=== PATIENT | female | born 1965 | race Caucasian/White ===

== ENCOUNTER 2024-10-18 14:25 | Observation (INO) ==
[2024-10-18] MEDS: MoRPHine SULFATE 10 MG/ML CARP/VIAL IV STA (14:38)
[2024-10-18] MEDS: SODIUM CHLORIDE 0.9% 1,000 ML IV STA (14:38)
--- NOTE | 2024-10-18 14:52 | Emergency Department Note ---
Impression & Plan Intractable abdominal pain, Severe nausea and vomiting, Acute dehydration ED Provider Note NAME: KERI CARTER AGE: 59 SEX: F : 1965 ARRIVES VIA: Ambulance INFORMANT: Patient, EMS, family ED PROVIDER(S): Abilio Aguilar DO CHIEF COMPLAINT: severe abdominal pain HPI: This is a 59-year-old female with the PMHx of prior cholecystectomy presenting to [facility] for further evaluation of severe abdominal. Patient is accompanied by EMS and family who provide additional history. EMS reports severe abdominal pain with nausea and emesis. Patient received Zofran and 200 mcg of IVP Fentanyl prior to arrival. Her symptoms have not improved. She notes the same complaints. 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 She notes its severe and like nothing she has experienced before. She describes it as a sharp pain in her RUQ. They deny fever or chills. No cough or congestion. Denies chest pain or palpitations. No shortness of breath. No urinary complaints. No recent changes in bowel movements. Patient denies recent changes in medications or OTC supplements. Patient offers no other complaints, today. ADDITIONAL HISTORY OBTAINED: Per HPI Chronic Medical/Social Conditions Affecting Care: Per HPI PAST MEDICAL HISTORY: See Below PAST SURGICAL HISTORY: See Below FAMILY HISTORY: See Below SOCIAL HISTORY: See Below HOME MEDICATIONS: See Below ALLERGIES: See Below VITALS: See Below PHYSICAL EXAMINATION: GENERAL: Sitting up in bed, alert, well appearing, well nourished, no distress, non-toxic EYE EXAM: normal conjunctiva. PERRL and EOM's grossly intact. OROPHARYNX: no exudate, no erythema, lips, buccal mucosa, and tongue normal and mucous membranes are moist NECK: supple, no nuchal rigidity, no adenopathy, non-tender LUNGS: Clear to auscultation. Normal chest wall mechanics HEART: no murmurs, regular rate, regular rhythm ABDOMEN: abdomen soft, TTP in the RUQ, no masses, no rebound or guarding. BACK: Back is symmetrical on inspection and there is no deformity, no midline tenderness, no CVA tenderness. SKIN: no rashes and no bruising UPPER EXTREMITIES: upper extremities are grossly normal. LOWER EXTREMITIES: No pitting edema. NEURO EXAM: Normal sensorium, GCS 15, normal speech, no gross weakness of arms, no gross weakness of legs. MEDICAL DECISION MAKING: Differential diagnoses includes but not limited to hepatobiliary dysfunction, pancreatitis, ischemic colitis, bowel perforation, SBO, appendicitis, electrolyte derangements, ACS, dysrhythmia, UTI, nephrolithiasis In summary, this is a 59 year old female who presented with acute onset, severe abdominal pain. Differential as above. Nursing notes and pertinent past medical records reviewed. Vital signs reviewed and the patient is hypertensive but otherwise afebrile and HDS. History and presentation revealed abdominal surgical history include cholecystectomy which raises concerns for possible intraabdominal pathology. Physical examination revealed as above. As a result of my initial evaluation, plan for pain control and antiemetics while obtaining labs/CTAP. Patient's presentation is concerning given that she is stoic and does not come to the hospital. Diagnostics interpreted by me include EKG and cardiac monitoring as listed below: -Cardiac Monitoring: An order was placed for continuous cardiac monitoring. The monitor shows a rate of 60-70s with regular rhythm. -ECG: EKG independently interpreted by me reveals normal sinus rhythm at a ventricular rate of [address] segment changes to suggest STEMI. There are some depressions and T wave inversions in the precordial leads. No other changes noted. Intervals within normal limits. Patient completed laboratory studies and imaging I-STAT chemistries independently interpreted by me revealed normal kidney function and electrolytes. Will plan for CT imaging. Results independently interpreted by me are no leukocytosis or anemia. No abnormalities of electrolytes or kidney function. Some elevation of BUN:Cr ratio likely from dehydration. Supported further by ketonuria from starvation ketosis. The patient does not have a UTI. No LFT elevation. The patient was managed with multimodal pain and nausea control without improvement. CTAP showed some CBD dilatation but likely normal in the setting of cholecystectomy. Would normally consider choledocholithiasis but no further evidence of this. EKG and troponin are reassuring that this is not an atypical presentation of ACS. Despite high doses of pain medications, she continued to have severe abdominal pain. The patient is felling asleep during subsequent interviews but continues to wake up report right sided abdominal pain. Ultimately, the decision was made to admit the patient for intractable abdominal pain with acute dehydration. I discussed the case with the hospitalist service via telephone/TigerText and they are agreeable to admit the patient to their services. Based on the above, including the patient's age, coexisting illnesses, labs, imaging, and exam findings the decision to treat as an inpatient. I discussed the patient with the hospitalist team who recommended admission to their services. They received the medications, treatments, interventions indicated above and their condition remained guarded. I discussed my findings with the patient and their family and they understand and agree with the treatment plan. All patient / family questions were answered to their satisfaction. Consults/Care Managements Discussions: Per MDM ER treatment provided: See above Procedures:none Critical Care: None The chart was completed utilizing [employer] Speech voice recognition software. Grammatical errors, random word insertions, pronoun errors, and incomplete sentences are an occasional consequence of this system due to software limitations, ambient noise, and hardware issues. Any formal questions or concerns about the content, text, or information contained within the body of this dictation should be directly addressed to the physician for clarification. 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 Beliefs That Will Affect Care: Mandaen Mandaen Beliefs: Congregational and Cultural Current Living Situation: Spouse and Family Other Information That Helps Us Care for You: No Feels Safe at Home: Yes Safety Concerns: Feels Safe At This Time Assistive Devices: Denture - Upper, Denture - Lower and Glasses Allergies Allergies Allergy/AdvReac Type Severity Reaction Status Date / Time No Known Allergies Unverified 10/18/24 15:38 Home Meds Home Medications Medication Instructions Recorded Confirmed acetaminophen 500 mg tablet 500 mg PO Q6H PRN Pain 10/18/24 10/18/24 ibuprofen 200 mg tablet 200 mg PO Q6H PRN Pain 10/18/24 10/18/24 multivitamin 1 tab PO DAILY 10/18/24 10/18/24 Results & Data (ED) Vital Signs Vital Signs - 24 hr 10/18/24 13:59 10/18/24 13:59 10/18/24 14:33 Temperature 37.1 C Temperature Source Oral Pulse Rate 71 71 Pulse Rate from SpO2 Sensor Respiratory Rate 22 Blood Pressure 144/70 H Blood Pressure Mean 94 Pulse Oximetry 97 Oxygen Delivery Method Room Air Room Air Sepsis Recent Fever Within 48 Hours No Sepsis New/Unexplained Change in Mental Status No Sepsis Action Taken by Nursing No Action Required 10/18/24 14:33 10/18/24 15:03 10/18/24 16:00 Temperature Temperature Source Pulse Rate 66 67 64 Pulse Rate from SpO2 Sensor 67 Respiratory Rate 13 14 13 Blood Pressure 144/70 H Blood Pressure Mean 94 Pulse Oximetry 93 Oxygen Delivery Method Room Air Sepsis Recent Fever Within 48 Hours Sepsis New/Unexplained Change in Mental Status Sepsis Action Taken by Nursing 10/18/24 17:00 Temperature Temperature Source Pulse Rate 70 Pulse Rate from SpO2 Sensor 70 Respiratory Rate 14 Blood Pressure Blood Pressure Mean Pulse Oximetry 95 Oxygen Delivery Method Room Air Sepsis Recent Fever Within 48 Hours Sepsis New/Unexplained Change in Mental Status Sepsis Action Taken by Nursing Laboratory Data 10/18/24 14:40 10/18/24 14:40 Lab Results 10/18/24 10/18/24 10/18/24 Range/Units 14:40 14:46 16:12 WBC 8.80 (4.8-10.8) K/ul RBC 4.18 L (4.20-5.40) M/uL Hgb 12.3 (12.0-16.0) g/dl POC Hgb 13.6 (12.0-16.0) g/dl Hct 37.8 (37.0-47.0) % POC Hct 40 (37-47) % MCV 90.4 (80.0-100.0) fL MCH 29.4 (25.0-34.0) pg MCHC 32.5 (32.0-36.0) g/dL RDW Std Deviation 47.3 H (36.4-46.3) fL RDW Coeff of Courtney 14.2 (11.5-14.5) % Plt Count 299 (130-400) K/uL MPV 9.8 (9.4-12.4) fL Immature Gran % (Auto) 0.2 % Neut % (Auto) 81.1 % Lymph % (Auto) 13.1 % [place] % (Auto) 4.7 % Eos % (Auto) 0.1 % Baso % (Auto) 0.8 % Neut # (Auto) 7.14 H (1.40-6.50) K/uL Lymph # (Auto) 1.15 L (1.20-3.40) K/uL [place] # (Auto) 0.41 (0.11-0.59) K/uL Eos # (Auto) 0.01 (0.00-0.50) K/uL Baso # (Auto) 0.07 (0.00-0.20) K/uL Immature Gran # (Auto) 0.02 (0.01-0.20) K/uL POC Sodium 139 (135-144) mmol/L Sodium 138 (136-145) mmol/L POC Potassium 3.8 (3.3-5.0) mmol/L Potassium 3.8 (3.5-5.1) mmol/L POC Chloride 104 (101-112) mmol/L Chloride 105 (98-107) mmol/L Carbon Dioxide 25 (21-32) mmol/L POC Total CO2 22 L (24-31) mmol/L Anion Gap 8 (3-11) POC Anion Gap 18.0 (16-25) mmol/L POC BUN 20 H (7-18) mg/dl BUN 20 (6-23) mg/dl Creatinine 0.58 L (0.6-1.2) mg/dl POC Creatinine 0.7 (0.6-1.3) mg/dl Est Cr Clr Drug Dosing 127.4 ml/min eGFR 102.89 BUN/Creatinine Ratio 34.5 H (10-20) Glucose 117 H (70-99(Fasting)) mg/dl POC Glucose (other) 114 H (70-99) mg/dl Lactate 0.7 (0.4-2.0) mmol/L Calcium 8.8 (8.6-10.3) mg/dl POC Ioniz Calcium Nura 1.15 (1.12-1.32) mmol/l Total Bilirubin 0.5 (0.2-1.0) mg/dl AST 22 (13-39) U/L ALT 23 (7-52) U/L Alkaline Phosphatase 54 (34-104) U/L Troponin I High Sens 6.2 (0-14) pg/ml Total Protein 7.2 (6.0-8.3) gm/dl Albumin 4.2 (3.4-5.0) gm/dl Globulin 3.0 (2.5-4.0) gm/dl Albumin/Globulin Ratio 1.4 (0.9-2) Lipase 13 (11-82) U/L Urine Color Dark Yellow Urine Appearance Clear (Clear) Urine pH 8.0 H (4.5-7.5) Ur Specific [place] 1.036 H (1.000-1.030) Urine Protein Trace H (Negative) Urine Glucose (UA) Negative (Negative) Urine Ketones 2+ H (Negative) Urine Blood Negative (Negative) Urine Nitrite Negative (Negative) Urine Bilirubin Negative (Negative) Urine Urobilinogen Negative (Negative) Ur Leukocyte Esterase Trace H (Negative) Urine WBC (Auto) 0-5 (0-5) /hpf Urine RBC (Auto) 0-2 (0-2) /hpf U Hyaline Cast (Auto) 0-2 (0-2) /lpf U Epithel Cells (Auto) 0-2 (0-2) /hpf Urine Bacteria (Auto) None Seen (None Seen) Urine Comment Administered Medications Sodium Chloride (Nss) 1,000 mls @ 100 mls/hr IV .Q10H GREGG Stop: 10/21/24 22:02 Last Admin: 10/18/24 22:29 Dose: 100 mls/hr Documented By: JANA Pantoprazole Sodium (Protonix) 40 mg in 10 mls @ 5 mls/min IV Q12 GREGG Stop: 11/17/24 22:02 Last Admin: 10/18/24 22:58 Dose: 5 mls/min Documented By: JANA Morphine Sulfate (Morphine Sulfate 4 Mg/Ml 1 Ml Carp\Vial) 3 mg IV Q4H PRN PRN Reason: Severe Pain (Scale 7, 8, 9,10) Stop: 11/01/24 22:02 Last Admin: 10/18/24 22:30 Dose: 3 mg Documented By: JANA Discontinued Medications Al Hydrox/Mg Hydrox/Simethicone (Aluminum/Magnesium Susp 30 Ml Udc) 30 ml PO NOW STA Stop: 10/18/24 16:53 Last Admin: 10/18/24 19:05 Dose: 30 ml Documented By: CAILIN Al Hydrox/Mg Hydrox/Simethicone (Aluminum/Magnesium Susp 30 Ml Udc) Confirm Administered Dose 30 ml .ROUTE .STK-MED ONE Stop: 10/18/24 19:05 Last Admin: 10/18/24 19:05 Dose: Not Given Documented By: CAILIN Diazepam (Diazepam Inj 5 Mg/Ml 2 Ml Carp) 5 mg IV NOW ONE Stop: 10/18/24 16:32 Last Admin: 10/18/24 16:47 Dose: 5 mg Documented By: KUSH Droperidol (Droperidol 5 Mg/2 Ml Vial) 1.25 mg IV ONE STA Stop: 10/18/24 16:09 Last Admin: 10/18/24 16:17 Dose: 1.25 mg Documented By: KUSH Fentanyl Citrate (Fentanyl Citrate Pf 100 Mcg/2 Ml Vial) Confirm Administered Dose 200 mcg .ROUTE .STK-MED ONE Stop: 10/18/24 14:44 Last Admin: 10/18/24 16:18 Dose: Not Given Documented By: KUSH Sodium Chloride (Nss) 1,000 mls @ 999 mls/hr IV .Q1H1M STA Stop: 10/18/24 15:32 Last Infusion: 10/18/24 18:59 Dose: Infused Documented By: Admin: 10/18/24 14:38 Dose: 999 mls/hr Documented By: DORA Ioversol (Optiray 320 100ml) 90 ml IV ONCE ONE Stop: 10/18/24 15:19 Last Admin: 10/18/24 15:18 Dose: 90 ml Documented By: ANITA Morphine Sulfate (Morphine Sulfate 10 Mg/Ml Carp/Vial) 6 mg IV NOW STA Stop: 10/18/24 14:33 Last Admin: 10/18/24 14:38 Dose: 6 mg Documented By: DORA Morphine Sulfate (Morphine Sulfate 4 Mg/Ml 1 Ml Carp\Vial) 4 mg IV NOW STA Stop: 10/18/24 18:30 Last Admin: 10/18/24 18:37 Dose: 4 mg Documented By: [facility] [place] Radiologist's Impression: Abdomen/Pelvis CT 10/18/24 14:[address] WITH IV CONTRAST CT DOSE: 1380.75 mGy.cm HISTORY: Severe right upper quadrant abdominal pain with prior cholecystectomy severe RUQ abd pain, h/o cholecystectomy TECHNIQUE: Multiaxial CT images of the abdomen and pelvis were performed following the IV administration of 90 cc of Optiray, A dose lowering technique was utilized adhering to the principles of ALARA. COMPARISON STUDY: Ultrasound 04/06/2009. FINDINGS: The imaged lung bases appear clear. No pneumatosis or pneumoperitoneum. The liver is only partially imaged with the visualized portions appearing to be within normal limits. Patent portal vein. Cholecystectomy with likely postsurgical biliary ductal dilation. The common bile duct measures 1.3 cm. Unremarkable spleen, pancreas and adrenal glands. The kidneys are unremarkable. No hydronephrosis. Atherosclerosis of the aorta without aneurysm. There is no lymphadenopathy. No bowel obstruction or bowel wall thickening. Nonspecific subcentimeter nodular focus of the omentum on image 95 series 3. Colonic diverticulosis without acute diverticulitis. Normal appendix. No ascites or mesenteric inflammation. No acute fracture. Sclerotic focus of the right iliac bone is nonspecific, possibly a bone island. IMPRESSION: 1. No acute intra-abdominal or intrapelvic abnormality. 2. Prior cholecystectomy with likely postsurgical biliary ductal dilation. 3. No bowel obstruction or bowel wall thickening. ACT 112: Negative or not required by law. The above report was generated using voice recognition software. It may contain grammatical, syntax or spelling errors. Electronically signed by: Dagoberto Lopez M.D. 10/18/2024 3:50 PM Discharge Plan Visit Data Chief Complaint: Abdominal Pain ED Provider: Abilio Aguilar Discharge Problem: Intractable abdominal pain, Severe nausea and vomiting, Acute dehydration Patient Disposition: Admitted As Inpatient Condition: Fair Discharge Instructions Interventions: ED Discharge Assessment Last Done: 10/18/24 21:05
[2024-10-18 14:55] LABS: Hematocrit (blood only) 37.8 % (37.0-47.0); Hemoglobin 12.3 g/dl (12.0-16.0); Immature Granulocytes # (auto) 0.02 K/uL (0.01-0.20); Immature Granulocytes % (auto) 0.2 %; Mean Corpuscular Hemoglobin 29.4 pg (25.0-34.0); Mean Corpuscular Volume 90.4 fL (80.0-100.0); Platelet Count 299 K/uL (130-400); RDW Standard Deviation 47.3 fL (36.4-46.3); Red Blood Count 4.18 M/uL (4.20-5.40); White Blood Count 8.80 K/ul (4.8-10.8)
[2024-10-18 15:16] LABS: Alanine Aminotransferase 23.0 U/L (7-52); Albumin Globulin Ratio 1.4 (0.9-2); Alkaline Phosphatase 54.0 U/L (34-104); Anion Gap 8.0 (3-11); Bilirubin,Total 0.5 mg/dl (0.2-1.0); Blood Urea Nitrogen 20.0 mg/dl (6-23); Calcium 8.8 mg/dl (8.6-10.3); Carbon Dioxide 25.0 mmol/L (21-32); Chloride 105.0 mmol/L (98-107); Creatinine Clr Calc Pharmacy 127.4 ml/min; Globulin 3.0 gm/dl (2.5-4.0); Glucose 117.0 mg/dl (70-99(Fasting)); Lipase 13.0 U/L (11-82); Potassium 3.8 mmol/L (3.5-5.1); Sodium 138.0 mmol/L (136-145); Total Protein 7.2 gm/dl (6.0-8.3)
[2024-10-18] MEDS: OPTIRAY 320 100ml IV ONE (15:18)
--- NOTE | 2024-10-18 15:51 | CT Scan Report ---
ABDOMEN AND PELVIS CT WITH IV CONTRAST CT DOSE: 1380.75 mGy.cm HISTORY: Severe right upper quadrant abdominal pain with prior cholecystectomy severe RUQ abd pain, h/o cholecystectomy TECHNIQUE: Multiaxial CT images of the abdomen and pelvis were performed following the IV administrat ion of 90 cc of Optiray, A dose lowering technique was utilized adhering to the principles of ALARA. COMPARISON STUDY: Ultrasound 04/06/2009. FINDINGS: The imaged lung bases appear clear. No pneumatosis or pneumoperitoneum. The liver is only p artially imaged with the visualized portions appearing to be within normal limits. Patent portal vein . Cholecystectomy with likely postsurgical biliary ductal dilation. The common bile duct measures 1.3 cm. Unremarkable spleen, pancreas and adrenal glands. The kidneys are unremarkable. No hydronephrosi s. Atherosclerosis of the aorta without aneurysm. There is no lymphadenopathy. No bowel obstruction or bowel wall thickening. Nonspecific subcentimeter nodular focus of the omentum on image 95 series 3. Colonic diverticulosis without acute diverticulitis. Normal appendix. No ascit es or mesenteric inflammation. No acute fracture. Sclerotic focus of the right iliac bone is nonspeci fic, possibly a bone island. IMPRESSION: 1. No acute intra-abdominal or intrapelvic abnormality. 2. Prior cholecystectomy with likely postsurgical biliary ductal dilation. 3. No bowel obstruction or bowel wall thickening. ACT 112: Negative or not required by law. The above report was generated using voice recognition software. It may contain grammatical, syntax o r spelling errors. Electronically signed by: Dagoberto Lopez M.D. 10/18/2024 3:50 PM
[2024-10-18] MEDS: DROPERIDOL 5 MG/2 ML VIAL IV STA (16:17)
[2024-10-18 16:40] LABS: Appearance Urine Clear (Clear); Bacteria Urine Automated None Seen (None Seen); Cast Urine Automated 0-2 /lpf (0-2); Epithelial Cell Urine Auto 0-2 /hpf (0-2); Glucose Urine UA Negative (Negative); RBC Urine Automated 0-2 /hpf (0-2); WBC Urine Automated 0-5 /hpf (0-5)
--- NOTE | 2024-10-18 18:03 | History & Physical Report ---
Date of Service October 18, 2024 Assessment & Plan (1) Abdominal pain: (2) Vomiting: Plan: Observation to med/surg Patient presenting from home for evaluation of intractable RUQ abdominal pain and vomiting. In the ED, labs and CT abd/pelvis unremarkable Suspect viral gastroenteritis Supportive care with IVF, IV PPI, PRN antiemetics and pain meds Clear liquids, NPO after midnight Consider GI consult in the AM if not improving DVT PROPHYLAXIS Ambulate, SCDs Patient seen in collaboration with Dr. Antunez. I spent a total of 60 minutes coordinating, documenting, and providing care for this patient excluding time spent in the performance of separately billed services. This included personally reviewing all current laboratories and imaging studies, medication reconciliation, outpatient chart review, and discussion with specialists. History of Present Illness Chief Complaint: Abdominal Pain, Vomiting Primary Care Provider: NO PCP 59 year old [facility] female without significant PMH, hx of cholecystectomy 15 years ago, who presents for evaluation of abdominal pain. 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 She reports associated vomiting. Denies hematemesis and coffee ground emesis. No diarrhea. Denies fever and chills. Took a total of 1000mg of ibuprofen without any improvement in the pain. No sick contacts reported. Denies recent travel. No urinary symptoms. Denies chest pain, SOB, lightheadedness, dizziness, diaphoresis, and syncopal event. In the ED, labs and CT abd/pelvis are unremarkable. VSS. Patient was given IV diazepam, droperidol, IV fentanyl, IV morphine, and IVF. She reports improvement in the pain however is still present. Allergies Allergy/AdvReac Type Severity Reaction Status Date / Time No Known Allergies Unverified 10/18/24 15:38 Home Medications Medication Instructions Recorded Confirmed Type acetaminophen 500 mg tablet 500 mg PO Q6H PRN Pain 10/18/24 10/18/24 History ibuprofen 200 mg tablet 200 mg PO Q6H PRN Pain 10/18/24 10/18/24 History multivitamin 1 tab PO DAILY 10/18/24 10/18/24 History Past Med/Surg History Problem List (Updated 10/18/24 @ 18:11 by ELIS Kovacs) Vomiting Abdominal pain Surgical History (Updated 10/18/24 @ 18:09 by ELIS Kovacs) History of cholecystectomy Social History Smoking Status: Never smoker Feels Safe at Home: Yes Review of Systems Review of Systems: ROS per HPI, all other systems reviewed and negative Physical Exam Constitutional: WD/WN, vitals as above no acute distress Respiratory: normal respiratory effort, lungs clear to auscultation Cardiovascular: Rate/Rhythm: regular rate and regular rhythm Vessels: normal peripheral pulses Extremities: no edema Gastrointestinal (Abdomen): Percussion/Palpation: + abdomen tender (RUQ) and abdomen soft Skin: no rashes, warm and dry Neurologic: no focal motor deficits Psychiatric: A+Ox3, euthymic affect Results & Data Results & Data Vital Signs (Past 12 Hours) Vital Signs Temp Pulse Resp BP Pulse Ox O2 Del Method 10/18/24 17:59 63 10/18/24 17:00 70 14 95 Room Air 10/18/24 16:00 64 13 10/18/24 15:03 67 14 93 Room Air 10/18/24 14:33 66 13 144/70 H 10/18/24 14:33 71 10/18/24 13:59 Room Air 10/18/24 13:59 37.1 C 71 22 144/70 H 97 Room Air Laboratory Results Short CBC 10/18/24 Range/Units 14:40 WBC 8.80 (4.8-10.8) K/ul Hgb 12.3 (12.0-16.0) g/dl Hct 37.8 (37.0-47.0) % Plt Count 299 (130-400) K/uL BMP 10/18/24 14:40 Sodium 138 Potassium 3.8 Chloride 105 Carbon Dioxide 25 BUN 20 Creatinine 0.58 L Glucose 117 H Calcium 8.8 Liver Function 10/18/24 Range/Units 14:40 Total Bilirubin 0.5 (0.2-1.0) mg/dl AST 22 (13-39) U/L ALT 23 (7-52) U/L Alkaline Phosphatase 54 (34-104) U/L Albumin 4.2 (3.4-5.0) gm/dl Urine 10/18/24 Range/Units 16:12 Urine Color Dark Yellow Urine Appearance Clear (Clear) Urine pH 8.0 H (4.5-7.5) Ur Specific [place] 1.036 H (1.000-1.030) Urine Protein Trace H (Negative) Urine Glucose (UA) Negative (Negative) Diagnostic Findings Abdomen/Pelvis CT 10/18/24 14:[address] WITH IV CONTRAST CT DOSE: 1380.75 mGy.cm HISTORY: Severe right upper quadrant abdominal pain with prior cholecystectomy severe RUQ abd pain, h/o cholecystectomy TECHNIQUE: Multiaxial CT images of the abdomen and pelvis were performed following the IV administration of 90 cc of Optiray, A dose lowering technique was utilized adhering to the principles of ALARA. COMPARISON STUDY: Ultrasound 04/06/2009. FINDINGS: The imaged lung bases appear clear. No pneumatosis or pneumoperitoneum. The liver is only partially imaged with the visualized portion s appearing to be within normal limits. Patent portal vein. Cholecystectomy with likely postsurgical biliary ductal dilation. The common bile duct measures 1.3 cm. Unremarkable spleen, pancreas and adrenal glands. The kidneys are unremarkable. No hydronephrosis. Atherosclerosis of the aorta without aneurysm. There is no lymphadenopathy. No bowel obstruction or bowel wall thickening. Nonspecific subcentimeter nodular focus of the omentum on image 95 series 3. Colonic diverticulosis without acute diverticulitis. Normal appendix. No ascites or mesenteric inflammation. No acute fracture. Sclerotic focus of the right iliac bone is nonspecific, possibly a bone island. IMPRESSION: 1. No acute intra-abdominal or intrapelvic abnormality. 2. Prior cholecystectomy with likely postsurgical biliary ductal dilation. 3. No bowel obstruction or bowel wall thickening. ACT 112: Negative or not required by law. The above report was generated using voice recognition software. It may contain grammatical, syntax or spelling errors. Electronically signed by: Dagoberto Lopez M.D. 10/18/2024 3:50 PM Supervising Physician Co-Signing Physician Notes Attending addendum: The patient was seen and examined in emergency room in presence of the family members She has been complaining of abdominal pain involving the right upper quadrant since this morning Denies any fever and or chills associated with it but she did have Nausea and vomiting but no diarrhea She took ibuprofen this morning for the pain but denies taking any special food or any other substance On examination Lying in bed without any acute distress Remains hemodynamically stable and afebrile Chest was clear to auscultation bilaterally Normal heart sounds without any murmur Extremities did not show any edema Examination of the abdomen did show mildly tender right upper quadrant without guarding and no rigidity. Bowel sounds present and the pain was not increased with increasing respiration Her admission labs and imaging studies reviewed Labs are unremarkable and CT scan of the abdominal pelvis is unremarkable too Likely has gastritis/gastroenteritis which could be viral or any other chemical induced No evidence of significant biliary dilatation or LFTs abnormalities given the history of cholecystectomy in the past Received pain medications in the emergency room and the patient little drowsy from that Will give her some IV fluid and intravenous Protonix and observe her overnight Likely discharge tomorrow Agree with assessment and plan as outlined above by Thania GILLIS and take the full responsibility of care in the hospital Dr Esme Antunez
[2024-10-18] MEDS: MoRPHine SULFATE 4 MG/ML 1 ML CARP\\VIAL IV STA (18:37)
[2024-10-18] MEDS: ALUMINUM/MAGNESIUM SUSP 30 ML UDC PO STA (19:05)
[2024-10-18] MEDS: ALUMINUM/MAGNESIUM SUSP 30 ML UDC ONE (19:05)
[2024-10-18] MEDS ORDERED: ONDANSETRON INJ 2 MG/ML 2 ML VIAL IV PRN (22:03)
[2024-10-18] MEDS: SODIUM CHLORIDE 0.9% 1,000 ML IV SCH (22:29)
[2024-10-18] MEDS: MoRPHine SULFATE 4 MG/ML 1 ML CARP\\VIAL IV PRN (22:30)
[2024-10-18] MEDS: PANTOprazole 40 MG/10 ML SYR IV SCH (22:58)
[2024-10-19 06:55] LABS: Hematocrit (blood only) 35.9 % (37.0-47.0); Hemoglobin 12.1 g/dl (12.0-16.0); Mean Corpuscular Hemoglobin 30.7 pg (25.0-34.0); Mean Corpuscular Volume 91.1 fL (80.0-100.0); Platelet Count 295 K/uL (130-400); RDW Standard Deviation 48.8 fL (36.4-46.3); Red Blood Count 3.94 M/uL (4.20-5.40); White Blood Count 8.65 K/ul (4.8-10.8)
[2024-10-19 07:08] LABS: Alanine Aminotransferase 20.0 U/L (7-52); Albumin Globulin Ratio 1.4 (0.9-2); Alkaline Phosphatase 48.0 U/L (34-104); Anion Gap 5.0 (3-11); Bilirubin,Total 0.7 mg/dl (0.2-1.0); Blood Urea Nitrogen 14.0 mg/dl (6-23); Calcium 8.5 mg/dl (8.6-10.3); Carbon Dioxide 28.0 mmol/L (21-32); Chloride 108.0 mmol/L (98-107); Creatinine Clr Calc Pharmacy 124.4 ml/min; Globulin 2.8 gm/dl (2.5-4.0); Glucose 115.0 mg/dl (70-99(Fasting)); Potassium 4.0 mmol/L (3.5-5.1); Sodium 141.0 mmol/L (136-145); Total Protein 6.6 gm/dl (6.0-8.3)
[2024-10-19 07:14] VITALS: RESP 18
[2024-10-19] MEDS: ACETAMINOPHEN 325 MG TAB PO PRN (07:27)
[2024-10-19] MEDS: LIDOCAINE VISCOUS 2% 15 ML UDC PO ONE (09:33)
[2024-10-19] MEDS: ALUMINUM/MAGNESIUM SUSP 30 ML UDC PO STA (09:34)
--- NOTE | 2024-10-19 11:40 | Hospitalist Progress Note ---
<Statement entered by Jose L Hernandes, DO - 10/19/24 15:28> I have seen and examined the patient and have discussed the case with the advance practice provider. I have reviewed the advanced practitioner's documentation, and I agree with, and take responsibility for that plan of care. See discharge summary for additional documentation I spent a total of x minutes coordinating, documenting, and providing care for this patient excluding time spent by another provider/QHP. Date of Service October 19, 2024 Assessment & Plan (1) Acute dehydration: (2) Severe nausea and vomiting: (3) Intractable abdominal pain: Plan Observation to med/surg Patient presenting from home for evaluation of intractable RUQ abdominal pain and vomiting Work up - Afebrile, VSS, CT abd/pelvis unremarkable, no leukocytosis, lipase WNL, electrolyte or LFT abnormality noted Suspect viral gastroenteritis vs. gastritis Supportive care with IVF, IV PPI, PRN antiemetics and pain meds Trial GI cocktail, full liquids for lunch Care coordinated with Dr. Hernandes I spent a total of 35 minutes coordinating, documenting, and providing care for this patient excluding time spent in the performance of separately billed services or time spent by another provider/QHP. Admission and Anticipated Discharge Date Admission Date: October 18, 2024 Subjective Seen and examined in 324. Still having "nagging pain" in RUQ extending to mid abdomen. Nausea improved since admission, no further vomiting episodes. No F/C or diarrhea. No recent rashes or known tick bites. No herbal supplements at home. Takes seldom ibuprofen and tylenol as needed. H/o cholecystectomy years ago. Review of Systems Review of Systems: At least ten systems reviewed and negative except as noted in the HPI. Physical Exam Physical Exam: Gen: WD/WN, NAD, sitting in bedside chair, A&Ox3, obese HEENT: Normocephalic, atraumatic, mucous membranes moist Lung: Clear to Auscultation bilaterally Heart: Regular rate, regular rhythm Abdomen: Soft, TTP RUQ extending to epigastrium, no guarding, +BS x 4 Extremities: no edema Skin: Warm, no rash Results & Data Results & Data Vital Signs (Past 12 Hours) Vital Signs Temp Pulse Resp BP Pulse Ox O2 Del Method 10/19/24 07:31 Room Air 10/19/24 07:13 36.7 C 67 18 155/84 H 92 Room Air Laboratory Results Short CBC 10/18/24 10/19/24 Range/Units 14:40 06:38 WBC 8.80 8.65 (4.8-10.8) K/ul Hgb 12.3 12.1 (12.0-16.0) g/dl Hct 37.8 35.9 L (37.0-47.0) % Plt Count 299 295 (130-400) K/uL BMP 10/18/24 10/19/24 14:40 06:38 Sodium 138 141 Potassium 3.8 4.0 Chloride 105 108 H Carbon Dioxide 25 28 BUN 20 14 Creatinine 0.58 L 0.58 L Glucose 117 H 115 H Calcium 8.8 8.5 L Liver Function 10/18/24 10/19/24 Range/Units 14:40 06:38 Total Bilirubin 0.5 0.7 (0.2-1.0) mg/dl AST 22 19 (13-39) U/L ALT 23 20 (7-52) U/L Alkaline Phosphatase 54 48 (34-104) U/L Albumin 4.2 3.8 (3.4-5.0) gm/dl Urine 10/18/24 Range/Units 16:12 Urine Color Dark Yellow Urine Appearance Clear (Clear) Urine pH 8.0 H (4.5-7.5) Ur Specific [place] 1.036 H (1.000-1.030) Urine Protein Trace H (Negative) Urine Glucose (UA) Negative (Negative) Diagnostic Findings Abdomen/Pelvis CT 10/18/24 14:[address] WITH IV CONTRAST CT DOSE: 1380.75 mGy.cm HISTORY: Severe right upper quadrant abdominal pain with prior cholecystectomy severe RUQ abd pain, h/o cholecystectomy TECHNIQUE: Multiaxial CT images of the abdomen and pelvis were performed following the IV administration of 90 cc of Optiray, A dose lowering technique was utilized adhering to the principles of ALARA. COMPARISON STUDY: Ultrasound 04/06/2009. FINDINGS: The imaged lung bases appear clear. No pneumatosis or pneumoperitoneum. The liver is only partially imaged with the visualized portions appearing to be within normal limits. Patent portal vein. Cholecystectomy with likely postsurgical biliary ductal dilation. The common bile duct measures 1.3 cm. Unremarkable spleen, pancreas and adrenal glands. The kidneys are unremarkable. No hydronephrosis. Atherosclerosis of the aorta without aneurysm. There is no lymphadenopathy. No bowel obstruction or bowel wall thickening. Nonspecific subcentimeter nodular focus of the omentum on image 95 series 3. Colonic diverticulosis without acute diverticulitis. Normal appendix. No ascites or mesenteric inflammation. No acute fracture. Sclerotic focus of the right iliac bone is nonspecific, possibly a bone island. IMPRESSION: 1. No acute intra-abdominal or intrapelvic abnormality. 2. Prior cholecystectomy with likely postsurgical biliary ductal dilation. 3. No bowel obstruction or bowel wall thickening. ACT 112: Negative or not required by law. The above report was generated using voice recognition software. It may contain grammatical, syntax or spelling errors. Electronically signed by: Dagoberto Lopez M.D. 10/18/2024 3:50 PM
--- NOTE | 2024-10-19 14:59 | Discharge Summary ---
<Statement entered by Jose L Hernandes, DO - 10/19/24 15:27> I have seen and examined the patient and have discussed the case with the advance practice provider. I have reviewed the advanced practitioner's documentation, and I agree with, and take responsibility for that plan of care. Patient seen evaluated early in the morning, given a trial of a GI cocktail. Reevaluation later today, patient reports that it did seem to help. Has steadily improved throughout the day. Diet has been advancing and tolerated. Agree with plans for discharge as below I spent a total of 22 minutes coordinating, documenting, and providing care for this patient excluding time spent by another provider/QHP. Discharge Summary Date of Service October 19, 2024 Principal Dx & Hospital Course #1 = Principal Diagnosis (1) Acute dehydration: (2) Severe nausea and vomiting: (3) Intractable abdominal pain: Plan Patient presented yesterday for dehydration in setting of intractable nausea and vomiting and right-sided abdominal pain. Workup in the ED was unremarkable. Patient afebrile with stable vital signs. CT abdomen pelvis unremarkable. No leukocytosis, no other abnormality noted to lipase, electrolytes or LFTs. Vomiting resolved since arrival. Trial of GI cocktail earlier today with some relief. Able to tolerate clears for lunch, drinking p.o. fluids and ambulating in the camara. Suspect viral gastroenteritis due to quick resolution of symptoms. Will discharge home on a short course of Protonix due to possibility of GERD/gastritis contributing. Instructed to seek medical care for recurrent ab dominal pain, fever or inability to tolerate p.o. Offered to establish primary care for patient, but she declines at this time. Hemodynamically stable at time of discharge home with her spouse. Notes For Next Care Provider viral gastroenteritis, possible GERD vs gastritis Medication Changes From Visit protonix 40mg daily x 1 month, PRN zofran Admission HPI Per Admitting Provider 59 year old [facility] female without significant PMH, hx of cholecystectomy 15 years ago, who presents for evaluation of abdominal pain. 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 She reports associated vomiting. Denies hematemesis and coffee ground emesis. No diarrhea. Denies fever and chills. Took a total of 1000mg of ibuprofen without any improvement in the pain. No sick contacts reported. Denies recent travel. No urinary symptoms. Denies chest pain, SOB, lightheadedness, dizziness, diaphoresis, and syncopal event. In the ED, labs and CT abd/pelvis are unremarkable. VSS. Patient was given IV diazepam, droperidol, IV fentanyl, IV morphine, and IVF. She reports improvement in the pain however is still present. Admission Exam Per Admitting Provider Constitutional: WD/WN, vitals as above no acute distress Respiratory: normal respiratory effort, lungs clear to auscultation Cardiovascular: Rate/Rhythm: regular rate and regular rhythm Vessels: normal peripheral pulses Extremities: no edema Gastrointestinal (Abdomen): Percussion/Palpation: + abdomen tender (RUQ) and abdomen soft Skin: no rashes, warm and dry Neurologic: no focal motor deficits Psychiatric: A+Ox3, euthymic affect Discharge Exam Gen: WD/WN, NAD, sitting in bedside chair, A&Ox3, obese HEENT: Normocephalic, atraumatic, mucous membranes moist Lung: Clear to Auscultation bilaterally Heart: Regular rate, regular rhythm Abdomen: Soft, TTP RUQ improved, +BS x 4 Extremities: no edema Skin: Warm, no rash Updated Medication List Medication Instructions Recorded Confirmed Type acetaminophen 500 mg tablet 500 mg PO Q6H PRN Pain 10/18/24 10/18/24 History ibuprofen 200 mg tablet 200 mg PO Q6H PRN Pain 10/18/24 10/18/24 History multivitamin 1 tab PO DAILY 10/18/24 10/18/24 History ondansetron HCl 4 mg tablet 4 mg PO Q8H PRN nausea and 10/19/24 Rx vomiting #8 tabs pantoprazole 40 mg tablet,delayed 40 mg PO DAILY #30 tabs 10/19/24 Rx release Hospital Stay Data Consultations 10/18/24 17:23 ED Decision to Admit Stat Diagnostic Imagining Performed 10/18/24 14:33 CT abd pelvis IV con only Stat Pending Results Patient Have Any Pending Studies at Discharge: No Discharge Instructions Given to Patient (Per Discharging Provider) MEDICATION CHANGES: Protonix 40mg daily x 1 month for possible GERD vs gastritis Zofran PRN PENDING TEST RESULTS: None RECOMMENDATIONS FOR FOLLOW-UP: Recommend establishing with a PCP for routine medical care Continue medication regimen as scheduled aside from changes noted above Continue bland diet and advanced as tolerated OTHER INSTRUCTIONS: Seek medical attention if you have: * temperature above 101 * chest pain or trouble breathing * abdominal pain, nausea, vomiting * diarrhea, dark stools or bloody stools * any unanswered questions or concerns Call 911 if symptoms are severe. Please take good care of yourself. Call if you have any questions or problems. You can reach a [facility] hospitalist on duty at [facility] 24 hours a day by calling [phone]. Total Time Total Time Spent Total Time Spent (In Minutes): 35
[2024-10-19 15:31] VITALS: BP 167/90; PULSE 63; TEMP 98.2; O2SAT 96
--- NOTE | 2024-10-20 05:51 | Electrocardiogram Report ---
Test Reason : Blood Pressure : */* mmHG Vent. Rate : 70 BPM Atrial Rate : 70 BPM P-R Int : 198 ms QRS Dur : 96 ms QT Int : 422 ms P-R-T Axes : 33 -28 12 degrees QTcB Int : 455 ms Normal sinus rhythm Minimal voltage criteria for LVH, may be normal variant ( R in aVL ) Abnormal ECG No previous ECGs available Confirmed by Allan Gunter ([id number]) on 10/20/2024 5:51:14 AM Referred By: Confirmed By: Allan Gunter
== END 2024-10-19 18:18 | disposition home or self-care (01) ==
LOC: ED 14:25 → 3E 14:25 → SUATTDRO 17:53 → 3E 21:05